=== PATIENT | male | born 1990 | race Caucasian/White ===

== ENCOUNTER 2022-07-02 16:57 | Emergency (ER) | payer OTHER, SELFPAY ==
[2022-07-02 17:19] VITALS: BP 128/63; PULSE 69; RESP 16; TEMP 36.9; O2SAT 99
[2022-07-02] MEDS: KETOROLAC 30 MG/ML VIAL IM (20:30)
--- NOTE | 2022-07-02 20:43 | ED.BACK ---
HPI - Back Pain/Injury <MELISSA Hunt - Last Filed: 07/02/22 20:51> General Chief Complaint: Back Pain/Injury Stated Complaint: Hurt back on duty Time Seen by Provider: 07/02/22 20:38 Source: patient History of Present Illness HPI Narrative: 32-year-old male, active-duty , presents emergency department with right-sided low back pain after doing his semiannual physical readiness test earlier today. Patient states that he had to deadlift some objects and immediately felt a strain of his right lumbar region. Patient denies any loss of control of bowel or bladder, numbness or tingling of his legs or other symptoms of saddle anesthesia. Patient was scheduled to have duty tonight and was told to come into the emergency department to be evaluated. Review of Systems <MELISSA Hunt - Last Filed: 07/02/22 20:51> Review of Systems Narrative: Narrative: GENERAL: Denies chills, fatigue, fever, sweats. See HPI HEENT: Denies sinus pain, ear pain, sore throat, difficulty swallowing, dizziness. RESPIRATORY: Denies dyspnea, cough, wheezing, sputum. CARDIOVASCULAR: Denies chest pain, palpitations, edema. GASTROINTESTINAL: Denies nausea, vomiting, abdominal pain, diarrhea, constipation. : Denies dysuria, frequency, incontinence, hematuria, urinary retention, flank pain. MSK: Denies weakness, joint pain, or bony pain. Endorses Right-sided lumbar pain with movement. SKIN: Denies rash, skin lesions, or pruritis. NEUROLOGIC: Denies weakness, dizziness, headache, numbness, confusion. PSYCHIATRIC: No concerning psychosocial issues. Exam <MELISSA Hunt - Last Filed: 07/02/22 20:51> Narrative Exam Narrative: Exam Narrative: GENERAL: This is a well-nourished, well-developed patient, in no acute distress HEAD: Atraumatic. Normocephalic. EYES: Pupils equal round and reactive. Extraocular motions intact. No scleral icterus, injection or drainage. ENT: Nose without bleeding, purulent drainage. Throat without erythema, tonsillar hypertrophy or exudate. Airway patent. NECK: Trachea midline. No JVD or lymphadenopathy. Nontender. CARDIOVASCULAR: Regular rate and rhythm without murmurs, peripheral pulses intact, cap refill <2 sec. RESPIRATORY: Breath sounds equal and clear bilaterally. No wheezes, rales, or rhonchi. No cough. No increased respiratory effort. No accessory muscle use. GASTROINTESTINAL: Abdomen soft, non-tender, nondistended without guarding or rebound. No suprapubic pain. MSK: Moves all extremities. Limited range of motion due to pain, no clubbing or edema. Neurovascularly intact. NEURO: A&O x 3. SKIN: Warm, dry, no rashes or lesions noted. Initial Vital Signs Initial Vital Signs: Vital Signs Temperature 98.4 F 07/02/22 17:19 Pulse Rate 69 07/02/22 17:19 Respiratory Rate 16 07/02/22 17:19 Blood Pressure 128/63 07/02/22 17:19 Pulse Oximetry 99 07/02/22 17:19 Oxygen Delivery Method 07/02/22 17:19 Reviewed Back/Spine/Pelvis Other: BACK sprinkler tender but free of any obvious external abnormalities. There is no asymmetry, swelling, bruising or wound. There is no paraspinal tenderness or CVA tenderness. SI joints nontender. No pain over spinous processes. No symptoms of cauda equina such as saddle anesthesia. Sensation is grossly intact. ROM is limited in all directions due to pain. SLE is negative bilaterally. Reflexes 2-3 at patella and achilles bilaterally. Resistive strengths are within normal limits Gait is normal. Heel toe balance is intact. <Zunilda Lucas DO - Last Filed: 07/03/22 03:32> Initial Vital Signs Initial Vital Signs: Vital Signs Temperature 98.4 F 07/02/22 17:19 Pulse Rate 69 07/02/22 17:19 Respiratory Rate 16 07/02/22 17:19 Blood Pressure 128/63 07/02/22 17:19 Pulse Oximetry 99 07/02/22 17:19 Oxygen Delivery Method 07/02/22 17:19 Course <MELISSA Hunt - Last Filed: 07/02/22 20:51> Orders Ordered: Discontinued Medications Cyclobenzaprine HCl (Cyclobenzaprine 10 Mg Prepack) 1 bottle MISC SEEINSTR ONE Stop: 07/02/22 20:43 Last Admin: 07/02/22 20:57 Dose: 1 bottle Documented By: EB Ketorolac Tromethamine (Ketorolac 30 Mg/Ml Vial) 30 mg IM NOW ONE Stop: 07/02/22 20:22 Last Admin: 07/02/22 20:30 Dose: 30 mg Documented By: KAILEY Vital Signs Vital signs: Vital Signs - 8 hr 07/02/22 21:04 Pulse Rate 71 Respiratory Rate 16 Pulse Oximetry 99 Oxygen Delivery Method Room Air <Zunilda Lucas DO - Last Filed: 07/03/22 03:32> Orders Ordered: Discontinued Medications Cyclobenzaprine HCl (Cyclobenzaprine 10 Mg Prepack) 1 bottle MISC SEEINSTR ONE Stop: 07/02/22 20:43 Last Admin: 07/02/22 20:57 Dose: 1 bottle Documented By: EDWARD Ketorolac Tromethamine (Ketorolac 30 Mg/Ml Vial) 30 mg IM NOW ONE Stop: 07/02/22 20:22 Last Admin: 07/02/22 20:30 Dose: 30 mg Documented By: KAILEY Vital Signs Vital signs: Vital Signs - 8 hr 07/02/22 21:04 Pulse Rate 71 Respiratory Rate 16 Pulse Oximetry 99 Oxygen Delivery Method Room Air MDM - Back Pain/Injury <MELISSA Hunt - Last Filed: 07/02/22 20:51> Differential Diagnosis Differential diagnosis: Likely strain of lumbar region MDM Narrative Medical decision making narrative: 32-year-old male, active duty , presents to the emergency department with a low back strain secondary to lifting objects for his physical redness test earlier today. No signs of saddle anesthesia or trauma. Toradol injection given with instructions to start ibuprofen in the morning. Due to pharmacies being closed and limited availability of medications in the emergency department, sent home with Flexeril pack. Discussed return precautions and plan of care with patient, who was agreeable to course of action. Discharge Plan Departure Patient Disposition: Home Clinical Impression: Strain of lumbar region, Acute back pain Instructions: DI for Back Spasm, DI for Back Strain or Sprain Activity Restrictions/Additional Instructions: *You have been diagnosed with a lumbar strain. We have given you a injection of ketorolac which is a NSAID. Please do not take anymore Aleve or ibuprofen tonight but you may start taking 600 mg 3 times a day with food for the next 3-5 days starting tomorrow morning. I am giving you prescription for Flexeril, which is a muscle relaxant, to counter act your muscle spasms. Please do not drive or operate heavy machinery while using this medication as it may be sedating. If at any point you develop loss of control of bowel or bladder, numbness and tingling legs, etc. please return to the emergency department. Otherwise, please follow-up with your family doctor tomorrow. *What to do: *Please continue to take your regular medications as directed. [ ] New medication prescriptions sent to your pharmacy: [ ] [x ] New medication given in the ED [ ] No new medications given *Please follow up with your primary care provider in 2-3 days, call for an appointment. Let them know you were seen in the Emergency Department and that we ask that you be seen in follow up. We will electronically transmit a record of today's note if your PCP is in our system *If you do not have a primary care provider please contact the [facility] Resource line at [phone]. They will ask some questions about your medical history and help get you set up with a doctor in the community. ? Return to ER if you should have any new, worsening or concerning symptoms, such as worsening pain, severe headache, confusion, chest pain, difficulty breathing, fever greater than 101 F, shaking chills, persistent vomiting to the point that you cannot drink fluids, or other new or worsening symptoms. Visit Report Forms: Patient Portal/API <Zunilda Lucas DO - Last Filed: 07/03/22 03:32> [facility] Attending Arin Attestation: I was immediately available in the department for consultation. Documentation has been reviewed. I agree with assessment and plan.
[2022-07-02] MEDS: CYCLOBENZAPRINE 10 MG PREPACK 1 BOTTLE MISC (20:57)
[2022-07-02 21:04] VITALS: PULSE 71; RESP 16; O2SAT 99
== END 2022-07-02 21:04 | disposition home or self-care (01) ==
PROVIDERS: Emergency Provider Registered Nurse
DX: S39.012A Strain of muscle, fascia and tendon of lower back, initial encounter (principal); X50.0XXA Overexertion from strenuous movement or load, initial encounter
CPT/HCPCS: 96372; 99283; J1885